=== PATIENT | female | born 1950 | race Two or more races ===

== ENCOUNTER 2024-03-30 08:03 | Outpatient (CLI) | payer OTHER | END 2024-03-30 08:18 | disposition home or self-care (01) | LOC: TOM 08:03 | PROVIDERS: ATTEND Internal Medicine Gastroenterology | DX: K57.30 Diverticulosis of large intestine without perforation or abscess without bleeding (principal); Z86.010 Personal history of colon polyps; K56.600 Partial intestinal obstruction, unspecified as to cause ==